=== PATIENT | male | born 1945 | race Caucasian/White ===

== ENCOUNTER 2016-07-20 08:02 | Observation (INO) | payer OTHER ==
[~2016-07-20] VITALS: Ht 175.3 cm; Wt 94.9 kg
[~2016-07-20 08:02] MED LIST: ALEVE220 M2 PO; ALLOPURINOL300 MG PO; ASPIRIN81 M2 PO; COUMADIN5 MG PO; DOXYCYCLINE HY100 MG PO; HYDROCODON-ACE1 EAC7 PO; LOSARTAN POTAS100 MG PO; LOVAZA1 GM PO; METOPROLOL TART25 MG PO; OMEGA III EPA1000 MG PO
[2016-09-06 09:45] LABS: HEMATOCRIT 43.4 % (38.0-50.0); MCH 32.4 PG (29.0-34.0); MCHC 33.2 G/DL (30.0-36.0); MCV 97.7 FL (86-99); MEAN PLAT.VOLUME 10.5 uM^3 (9.0-12.4); PLATELET COUNT 158 K/uL (156-360); RBC DIS.WIDTH-CV 14.4 % (11.8-14.6); RBC DIS.WIDTH-SD 51.8 % (39-53); RED BLOOD COUNT 4.44 M/uL (4.00-5.50); WHITE BLOOD COUNT 7.4 K/uL (4.1-10.2)
[2016-09-06 09:56] LABS: CHLORIDE 100 mEq/L (99-109); POTASSIUM 4.3 mEq/L (3.7-5.4); SODIUM 136 mEq/L (136-147)
[2016-09-06 09:57] LABS: GLUCOSE 117 mg/dL (70-99)
[2016-09-06 09:58] LABS: ADD MIUA? YES; BILIRUBIN NEGATIVE; BLOOD SMALL; COLOR YELLOW ((YELLOW)); GLUCOSE (STRIP) NEGATIVE; KETONES NEGATIVE; LEUKOCYTES NEGATIVE; NITRITE NEGATIVE; PROTEIN (STRIP) NEGATIVE; SPECIFIC GRAVITY 1.009 (1.000-1.030); UROBILINOGEN 0.2 MG/DL (0.2-1.0)
[2016-09-06 09:59] LABS: ANION GAP 11 MEQ/L (2-14)
[2016-09-06 10:01] LABS: GFR ESTIMATE (CALCULATED) > 59 mL/min/
[2016-09-06 10:02] LABS: UREA NITROGEN (BUN) 17 mg/dL (9-23)
[2016-09-06 10:16] LABS: BACTERIA NONE SEEN /HPF; EPITHELIAL CELLS NONE SEEN /HPF; MUCUS NONE SEEN /LPF; WHITE BLOOD CELLS NONE SEEN /HPF (0-5)
[2016-09-06 10:17] VITALS: BP 120/68
[2016-09-06 17:25] LABS: HEMATOCRIT 32.2 % (38.0-50.0); MCV 99.4 FL (86-99)
[2016-09-06 20:05] VITALS: BP 98/56
[2016-09-07] VITALS (11 sets, daily range): BP systolic 81–110; BP diastolic 45–65
[2016-09-07 06:24] LABS: HEMATOCRIT 27.4 % (38.0-50.0); MCH 34.4 PG (29.0-34.0); MCHC 34.3 G/DL (30.0-36.0); MCV 100.4 FL (86-99); MEAN PLAT.VOLUME 10.3 uM^3 (9.0-12.4); PLATELET COUNT 116 K/uL (156-360); RBC DIS.WIDTH-CV 14.9 % (11.8-14.6); RBC DIS.WIDTH-SD 54.2 % (39-53); WHITE BLOOD COUNT 7.6 K/uL (4.1-10.2)
[2016-09-07 06:38] LABS: RED BLOOD COUNT 2.73 M/uL (4.00-5.50)
[2016-09-07 06:51] LABS: ANION GAP 10 MEQ/L (2-14); CHLORIDE 99 MEQ/L (99-109); GFR ESTIMATE (CALCULATED) 58 mL/min/; GLUCOSE 138 mg/dL (70-99); POTASSIUM 4.1 MEQ/L (3.7-5.4); SAMPLE HEMOLYSIS CHECK 0; SAMPLE ICTERIC CHECK 0; SAMPLE LIPEMIA CHECK 0; SODIUM 132 MEQ/L (136-147); UREA NITROGEN (BUN) 16 mg/dL (9-23)
[2016-09-08 04:11] VITALS: BP 119/60
[2016-09-08 07:32] VITALS: BP 108/58
[2016-09-08 11:50] VITALS: BP 113/60
[2016-09-08 12:30] LABS: HEMATOCRIT 28.7 % (38.0-50.0); MCV 96.6 FL (86-99)
[2016-09-08 16:15] VITALS: BP 136/61
== END 2016-09-08 18:50 | disposition home or self-care (01) ==
LOC: 2SOUTH 08:02 → EDSTATUS 10:42 → SDC 10:42 → 2SOUTH 10:44 → 3EAST 09-06 08:47 → 2SOUTH 09-06 08:47 → 3EAST 09-06 19:50
PROVIDERS: Neurological Surgery
PROC: 0SG10AJ Fusion of 2 or more Lumbar Vertebral Joints with Interbody Fusion Device, Posterior Approach, Anterior Column, Open Approach (ICD-10-PCS; principal; 2016-09-06)
PROC: 0QB00ZZ Excision of Lumbar Vertebra, Open Approach (ICD-10-PCS; principal; 2016-09-06)
PROC: 0SB20ZZ Excision of Lumbar Vertebral Disc, Open Approach (ICD-10-PCS; principal; 2016-09-06)
PROC: 30233N1 Transfusion of Nonautologous Red Blood Cells into Peripheral Vein, Percutaneous Approach (ICD-10-PCS; principal; 2016-09-06)
PROC: 01NB0ZZ Release Lumbar Nerve, Open Approach (ICD-10-PCS; principal; 2016-09-06)
DX: M47.816 Spondylosis without myelopathy or radiculopathy, lumbar region (principal); M99.83 Other biomechanical lesions of lumbar region; R79.1 Abnormal coagulation profile; D64.9 Anemia, unspecified; I48.0 Paroxysmal atrial fibrillation; I25.10 Atherosclerotic heart disease of native coronary artery without angina pectoris; Z95.5 Presence of coronary angioplasty implant and graft; I65.23 Occlusion and stenosis of bilateral carotid arteries; I69.998 Other sequelae following unspecified cerebrovascular disease; I10 Essential (primary) hypertension; E78.2 Mixed hyperlipidemia; F10.20 Alcohol dependence, uncomplicated; Z85.118 Personal history of other malignant neoplasm of bronchus and lung; M10.9 Gout, unspecified; Z79.82 Long term (current) use of aspirin; Z79.01 Long term (current) use of anticoagulants
CPT/HCPCS: 72100; 76000; 80048; 81003; 85014; 85018; 85027; 86900; 86901; 86920; C1713; G0378; G8978 GP CH; G8979 GP CH; G8980 GP CH; J0330; J0690; J1170; J2270; J2405; J3010; J3370; J3480; P9016; S0020

== ENCOUNTER 2016-09-13 11:09 | Emergency (ER) | payer OTHER ==
[~2016-09-13] VITALS: Ht 175.3 cm; Wt 90.5 kg
[2016-09-13 13:28] VITALS: BP 124/75
== END 2016-09-13 13:31 | disposition home or self-care (01) ==
LOC: EME 11:09
DX: K59.00 Constipation, unspecified (principal); J44.9 Chronic obstructive pulmonary disease, unspecified; I25.2 Old myocardial infarction; Z86.73 Personal history of transient ischemic attack (TIA), and cerebral infarction without residual deficits; Z79.01 Long term (current) use of anticoagulants; Z79.82 Long term (current) use of aspirin; Z87.891 Personal history of nicotine dependence
CPT/HCPCS: 74000; 99281; 99284